=== PATIENT | female | born 1960 | race Caucasian/White ===

== ENCOUNTER 2021-09-28 07:30 | Inpatient (IN) ==
[2021-10-09] MEDS ORDERED: diPHENhydraMINE IV 50 MG/ML 1 ml VIAL (BENADRYL) IV PRN (12:40)
[2021-10-09] MEDS ORDERED: Acetaminophen IV 1 GM/100ML 100 ML IV ONE (12:40)
[2021-10-09] MEDS ORDERED: DiMENhydriNATE IV 50 mg/ml 1 ml VIAL IV PUSH PRN (12:40)
[2021-10-09] MEDS ORDERED: Naloxone 0.4 mg VIAL 0.4 mg/ml 1 ml VIAL IV PRN (12:40)
[2021-10-09] MEDS ORDERED: Ondansetron 4 mg VIAL 2 MG/ML 2 ml VIAL IV PRN (12:40)
[2021-10-10] MEDS ORDERED: Lactated Ringers 1000 ml BAG 1,000 ML IV SCH (06:00)
[2021-10-10] MEDS ORDERED: Buffered Lidocaine 1% SYRIN 1 ml INTRADERM ONE ×2 (06:00→06:54)
[2021-10-10] MEDS ORDERED: ceFAZolin 2 GM in NS PREMIX 2 GM/100 ML BAG IVPB ONE (06:54)
[2021-10-10] MEDS ORDERED: Midazolam 2 mg/2 ml VIAL 1 mg/ml 2 ml VIAL (2 mg) ONE (07:13)
[2021-10-10] MEDS ORDERED: Dexamethasone IV 4 MG/ML VIAL 1 ml VIAL ONE ×3 (07:13→11:30)
[2021-10-10] MEDS ORDERED: Rocuronium 50 mg VIAL 10 mg/ml 5 ml VIAL (50 mg) ONE ×2 (07:13→08:30)
[2021-10-10] MEDS ORDERED: Ondansetron 4 mg VIAL 2 MG/ML 2 ml VIAL ONE ×3 (07:13→11:30)
[2021-10-10] MEDS ORDERED: Lidocaine 2% PF 5 ML VIAL ONE (07:13)
[2021-10-10] MEDS ORDERED: fentaNYL 100 mcg/2 ml 50 MCG/ML VIAL ONE ×2 (07:13→12:05)
[2021-10-10] MEDS ORDERED: Scopolamine 1 mg/72hr PATCH ONE (07:13)
[2021-10-10] MEDS ORDERED: Propofol 10 MG/ML 20 ML BTL ONE ×3 (07:13→11:19)
[2021-10-10] MEDS ORDERED: Bupivacaine 0.25% SDV PF 10 ML VIAL INJ ONE ×2 (07:18→09:48)
[2021-10-10] MEDS ORDERED: Methylene Blue 0.5 % 50 MG/10 ML AMP IV ONE (07:18)
[2021-10-10] MEDS ORDERED: ISOSULFAN BLUE 1% 5 ML VIAL 10 MG/ML SUBCUT ONE (07:18)
[2021-10-10] MEDS ORDERED: Phenylephrine 40 mcg/mL 10mL (400mcg) SYRINGE ONE (07:52)
[2021-10-10] MEDS ORDERED: Acetaminophen IV 1 GM/100ML 100 ML IV ONE (08:44)
[2021-10-10] MEDS ORDERED: HYDROmorphone 0.5 MG/0.5 ML SYRINGE ONE (08:51)
[2021-10-10] MEDS ORDERED: EPHEDrine (Pressors) 50 MG/ML VIAL ONE (10:36)
[2021-10-10] MEDS ORDERED: Glycopyrrolate IV 0.2 MG/ML 1 ML VIAL ONE (11:41)
[2021-10-10] MEDS ORDERED: Neostigmine Methylsulfate 3 MG/3 ML SYRINGE ONE (11:41)
[2021-10-10] MEDS: fentaNYL 100 mcg/2 ml 50 MCG/ML VIAL IV PRN ×3 (12:06→12:26)
[2021-10-10] MEDS ORDERED: HYDROmorphone 1 MG/1 ML SYRINGE IV PRN (14:48)
[2021-10-10] MEDS ORDERED: diPHENhydraMINE 25 mg TAB PO PRN (14:50)
[2021-10-10] MEDS ORDERED: Ondansetron 4 mg VIAL 2 MG/ML 2 ml VIAL IV PRN (14:51)
[2021-10-10] MEDS ORDERED: Al Hydrox/Mg Hydrox/Simet LIQ 30 ML UDC PO PRN (14:51)
[2021-10-10] MEDS ORDERED: Magnesium Hydroxide LIQ 30 ML UDC PO PRN (14:52)
[2021-10-10] MEDS: NS 0.9% 1,000 ML IV SCH (16:06)
[2021-10-11] MEDS: HYDROcodone/ACETAMIN 5/325 mg TAB PO PRN ×2 (01:53→08:29)
[2021-10-11] MEDS: NS 0.9% 1,000 ML IV SCH (04:11)
[2021-10-11] MEDS ORDERED: BIOTIN 5000 MCG SL SCH (09:00)
[2021-10-11] MEDS ORDERED: Multivitamins/Minerals TAB PO SCH (09:00)
[2021-10-11] MEDS ORDERED: Cholecalciferol (VIT D3) 1,000 unit TAB PO SCH (09:00)
[2021-10-11 11:33] VITALS: BP 118/61
== END 2021-10-11 12:08 | disposition home or self-care (01) | DRG 581 ==
LOC: AA 10-10 05:36 → SSU 10-10 14:16
PROVIDERS: ADMIT Plastic Surgery; ATTEND Plastic Surgery